=== PATIENT | female | born 1950 | race Two or more races ===

== ENCOUNTER 2017-09-30 18:10 | Emergency (ER) | payer OTHER ==
[~2017-09-30] VITALS: Ht 162.6 cm; Wt 60.0 kg
[2017-10-01] VITALS: BP 126/54
[2017-10-01] MEDS ORDERED: ACETAMINOPHEN 325MG TABLET PO ONE (00:30)
== END 2017-10-01 00:40 | disposition home or self-care (01) ==
LOC: ER 18:10
DX: S16.1XXA Strain of muscle, fascia and tendon at neck level, initial encounter (principal); M79.1 Myalgia; R51 Headache; V43.62XA Car passenger injured in collision with other type car in traffic accident, initial encounter; Y93.89 Activity, other specified; Y92.89 Other specified places as the place of occurrence of the external cause; Y99.8 Other external cause status
CPT/HCPCS: 72125; 99284